=== PATIENT | male | born 1985 | race Caucasian/White ===

== ENCOUNTER 2025-06-23 23:56 | Emergency (ER) | payer OTHER, SELFPAY ==
[2025-06-24 00:05] VITALS: BP 152/88
[2025-06-24] MEDS: GENOPTIC 0.3% EYE DROPS 1 DROP OPHTH (01:32)
[2025-06-24 01:37] VITALS: BP 133/84
--- NOTE | 2025-06-24 01:37 | ED.SKININJ ---
HPI-Injury
General
Chief Complaint: Eye Problems
Source: patient
Exam Limitations: none
Time Seen by Provider: 06/24/25 00:39
History of Present Illness-Injury
Initial Injury comments:
39-year-old male presents with foreign body sensation in left eye starting today. He was cutting wood today and he thinks may have something may be stuck in the eye. No vision change. He does not wear glasses or contacts
Phy Exam
Physical Exam
Physical Exam:
General: Well-appearing male no acute distress HEENT left eye examined with fluorescein and slit lamp. There is a foreign body over the medial aspect of the cornea as well as a foreign body embedded in the upper lid. These foreign bodies were
removed with a combination of cotton swab needle and bur. Slit-lamp was used to inspect for any further remaining foreign body and there was none. The eye was then irrigated.
Course
Orders/Labs/Results
Orders:
Orders
06/24/25 01:20
Gentamicin [Genoptic 0.3% Eye Drops] See Dose Instructions OPHTH NOW STA
Vital Signs
Initial and Last Documented VS:
Initial Vital Signs
Temp Pulse Resp BP Pulse Ox
97.9 F 82 20 152/88 100
06/24/25 00:05 06/24/25 00:05 06/24/25 00:05 06/24/25 00:05 06/24/25 00:05
Last Documented Vital Signs
Temp Pulse Resp BP Pulse Ox
97.9 F 61 14 133/84 97
06/24/25 00:05 06/24/25 01:37 06/24/25 01:37 06/24/25 01:37 06/24/25 01:37
MDM/Problems Addressed
Differential Diagnosis Includes:
Foreign body of the left eye removed. The eye was then irrigated. Patient was started on gentamicin drops. Recommend he follow-up with an eye doctor for persistent symptoms. Stable for discharge
*Pulse Oximetry
SaO2: 97
Oxygen Mode of Delivery: Room air
Patient hypoxic: no
*Critical Care Note
Total Time (30-74mins, 75-104mins- exclusive of procedures): Not Applicable
ED Attending Note
-
Portions of this chart may have been created with voice recognition software.� Occasional wrong word or��sound alike� substitutions may have occurred due to the inherent limitations of voice recognition software.
Discharge Plan
Departure
Patient Disposition: Home (Routine Discharge)
Date of Disposition: 06/24/25
Time of Disposition: 01:39
Patient with high blood pressure during this ER visit?: No
Discharge Problem:
Foreign body in eye
Instructions: Foreign Body in Eye (DC)
Referrals:
Aniyah Ortiz CRNP [Family Provider, General]
Activity Restrictions/Additional Instructions:
Use 1 drop into the left eye every 4 hours. Return if worse otherwise follow-up with eye doctor if symptoms persist
Interventions
Interventions:
*Risk Screen - Suicide Last Done: 06/24/25 00:05
*General Assessment Last Done: 06/24/25 00:05
*Neglect/Abuse Screening Last Done: 06/24/25 00:05
*ED- Fall Risk Assessment Last Done: 06/24/25 00:05
*ED COVID-19 Vaccine History Last Done: 06/24/25 00:05
Discharge Date and Time
Print Language: OCCITAN
== END 2025-06-24 01:44 | disposition home or self-care (01) ==
LOC: EMR 23:56
PROVIDERS: EMERGENCY PHYSICIAN Student in an Organized Health Care Education/Training Program; FAMILY PHYSICIAN Nurse Practitioner Adult Health
DX: T15.82XA Foreign body in other and multiple parts of external eye, left eye, initial encounter (principal); W44.F9XA Other object of natural or organic material, entering into or through a natural orifice, initial encounter
CPT/HCPCS: 99284; 65205